=== PATIENT | female | born 1960 | race Hispanic/Latino ===

== ENCOUNTER 2020-06-24 09:56 | Observation (INO) | payer OTHER ==
[~2020-06-24] VITALS: Ht 157.5 cm; Wt 92.1 kg
[2020-06-24] MEDS ORDERED: DILTIAZEM HCL 5 MG/ML 5 ML VIAL IV ONE ×2 (10:15→10:45)
[2020-06-24] MEDS ORDERED: SODIUM CHLORIDE 0.9% 1000ML 1,000 ML ONE ×3 (10:32→13:04)
[2020-06-24] MEDS ORDERED: ENOXAPARIN SODIUM INJ 100 MG/ML SYR SC STA (10:35)
[2020-06-24] MEDS ORDERED: SODIUM CHLORIDE 0.9% 1000ML 1,000 ML IV STA ×3 (10:41→12:28)
[2020-06-24] MEDS ORDERED: ASPIRIN 81 MG CHEW TAB PO ONE (10:45)
[2020-06-24] MEDS: SODIUM CHLORIDE FLUSH 10 ML SYR INJ PRN (11:00)
[2020-06-24] MEDS ORDERED: IOPAMIDOL 370 MG/ML 200 ML INFUS..BTL INJ ONE (11:16)
[2020-06-24] MEDS ORDERED: SODIUM CHLORIDE 0.9% 50ML 50 ML ONE (11:16)
[2020-06-24] MEDS ORDERED: METOPROLOL TARTRATE INJ 1 MG/ML VIAL IV ONE ×2 (12:00→12:45)
[2020-06-24] MEDS ORDERED: METOPROLOL TARTRATE INJ 1 MG/ML VIAL ONE ×2 (12:10→13:04)
[2020-06-24] MEDS ORDERED: FAMOTIDINE 20 MG TAB ONE (13:04)
[2020-06-24] MEDS: FAMOTIDINE 20 MG TAB PO SCH ×2 (13:05→23:50)
[2020-06-24] MEDS ORDERED: CEFTRIAXONE SOD 1 GM/NS 50 ML 50 ML IV ONE ×2 (13:15→14:02)
[2020-06-24] MEDS ORDERED: AZITHROMYCIN 500MG/NS 250 ML 250 ML IV ONE ×2 (14:00→19:45)
[2020-06-24 15:05] VITALS: BP 129/84
[2020-06-24 20:00] VITALS: BP 104/76
[2020-06-24] MEDS ORDERED: SODIUM CHLORIDE 0.9% 250ML 250 ML ONE (20:33)
[2020-06-24] MEDS: METOPROLOL SUCCINATE 25 MG TAB XL PO SCH (20:55)
[2020-06-24] MEDS: ONDANSETRON HCL INJ 2MG/ML 2ML 2 MG/ML VIAL IV PRN (21:52)
[2020-06-25 01:27] LABS: CHOL/HDL RATIO 6.1 (3.0-3.6)
[2020-06-25] MEDS: METOPROLOL SUCCINATE 25 MG TAB XL PO SCH ×5 (01:35→20:28)
[2020-06-25 02:00] VITALS: BP 115/82
[2020-06-25 03:30] VITALS: BP 111/70
[2020-06-25 08:00] VITALS: BP 108/70
[2020-06-25] MEDS ORDERED: CEFTRIAXONE SOD 1 GM/NS 50 ML 50 ML IV SCH (08:15)
[2020-06-25] MEDS ORDERED: GUAIFENESIN/DEXTROMETHORPHAN LIQD 5 ML UDC NG PRN (08:15)
[2020-06-25] MEDS ORDERED: ACETAMINOPHEN 325 MG TAB PO PRN (08:15)
[2020-06-25] MEDS ORDERED: DOCUSATE SODIUM 100 MG CAP PO PRN (08:15)
[2020-06-25] MEDS ORDERED: ZOLPIDEM TARTRATE 5 MG TAB PO PRN (08:15)
[2020-06-25] MEDS ORDERED: ASCORBIC ACID500 MG PO (08:58)
[2020-06-25] MEDS ORDERED: TOPROL XL25 MG PO (08:58)
[2020-06-25] MEDS ORDERED: KEFLEX500 MG PO (08:58)
[2020-06-25] MEDS ORDERED: FENOFIBRATE145 MG PO (08:58)
[2020-06-25] MEDS ORDERED: TESSALON PERLE100 MG PO (08:58)
[2020-06-25] MEDS ORDERED: ELIQUIS5 MG PEG (08:58)
[2020-06-25] MEDS ORDERED: ZITHROMAX500 MG PO (08:58)
[2020-06-25] MEDS ORDERED: FAMOTIDINE20 MG PO (08:58)
[2020-06-25] MEDS ORDERED: DEXAMETHASONE SOD PHOS 10 MG/1 ML VIAL IV SCH (09:00)
[2020-06-25 09:11] LABS: BASOPHILS % 0.3 % (0.0-1.0); EOSINOPHILS # (AUTO) 0.1 (0.0-0.4); EOSINOPHILS % 1.7 % (0.0-6.0); HEMATOCRIT 39.6 % (34.2-44.1); HEMOGLOBIN 13.2 g/dL (12.0-16.0); LYMPHOCYTES # (AUTO) 1.8 (1.0-3.2); LYMPHOCYTES % 30.8 % (18.0-39.1); MEAN CORPUSCULAR HEMOGLOBIN 31.4 pg (28-32); MEAN CORPUSCULAR HGB CONC 33.3 g/dL (31-35); MEAN CORPUSCULAR VOLUME 94.3 fL (81-99); MONOCYTES # (AUTO) 0.4 (0.2-0.8); MONOCYTES % 6.7 % (4.4-11.3); NEUTROPHILS # (AUTO) 3.5 (2.1-6.9); NEUTROPHILS % 60.2 % (38.7-80.0); PLATELET COUNT 246 x10e3/uL (140-360); RED CELL DISTRIBUTION WIDTH 12.2 % (11.7-14.4)
[2020-06-25 09:34] LABS: ANION GAP 14.9 mmol/L (8-16); BLOOD UREA NITROGEN 12 mg/dL (7-26); BUN/CREATININE RATIO 18 (6-25); CALCIUM 8.6 mg/dL (8.4-10.2); CARBON DIOXIDE 22 mmol/L (22-29); CHLORIDE 105 mmol/L (98-107); CREATININE, SERUM 0.67 mg/dL (0.57-1.11); EST GLOMERULAR FILTRATION RATE > 60 ML/MIN (60-); GLUCOSE 212 mg/dL (74-118); POTASSIUM 3.9 mmol/L (3.5-5.1); SODIUM 138 mmol/L (136-145)
[2020-06-25 09:50] LABS: CHOL/HDL RATIO 4.6 (3.0-3.6)
[2020-06-25] MEDS: ZINC SULFATE 220 MG CAP PO SCH (10:00)
[2020-06-25] MEDS: BENZONATATE 100 MG CAP PO SCH ×3 (10:00→20:27)
[2020-06-25] MEDS: ASCORBIC ACID 500 MG TAB PO SCH ×2 (10:00→17:37)
[2020-06-25] MEDS: AZITHROMYCIN 500MG/NS 250 ML 250 ML IV SCH (10:00)
[2020-06-25 10:32] LABS: CREATINE KINASE MB 1.5 ng/mL (0-5.0)
[2020-06-25 12:00] VITALS: BP 102/70
[2020-06-25] MEDS: VANCOMYCIN 250MG/5ML ORAL SOLN PO SCH ×2 (12:30→18:06)
[2020-06-25] MEDS: FAMOTIDINE 20 MG TAB PO SCH (13:30)
[2020-06-25 16:00] VITALS: BP 105/83
[2020-06-25] MEDS ORDERED: DEXTROSE 50% SYRINGE 50 ML IV PRN (16:15)
[2020-06-25] MEDS: INSULIN REGULAR, HUMAN 100 UNIT/1 ML 3ML VIAL SQ SCH ×2 (16:30→20:28)
[2020-06-25] MEDS: CHOLESTYRAMINE 4 GM PACKET PO SCH (17:37)
[2020-06-25 20:00] VITALS: BP 117/76
[2020-06-26] VITALS: BP 123/78
[2020-06-26] MEDS: VANCOMYCIN 250MG/5ML ORAL SOLN PO SCH ×3 (00:33→12:00)
[2020-06-26] MEDS: FAMOTIDINE 20 MG TAB PO SCH (00:34)
[2020-06-26 04:00] VITALS: BP 129/89
[2020-06-26] MEDS: INSULIN REGULAR, HUMAN 100 UNIT/1 ML 3ML VIAL SQ SCH ×2 (07:30→12:58)
[2020-06-26 08:00] VITALS: BP 132/93
[2020-06-26 08:20] VITALS: BP 132/93
[2020-06-26] MEDS ORDERED: METOPROLOL SUCCINATE 50 MG TAB XL PO SCH ×2 (09:00→21:00)
[2020-06-26] MEDS: BENZONATATE 100 MG CAP PO SCH (09:38)
[2020-06-26] MEDS: AZITHROMYCIN 500MG/NS 250 ML 250 ML IV SCH (09:38)
[2020-06-26] MEDS: CHOLESTYRAMINE 4 GM PACKET PO SCH (09:38)
[2020-06-26] MEDS: SODIUM CHLORIDE FLUSH 10 ML SYR INJ PRN (09:39)
[2020-06-26] MEDS: ASCORBIC ACID 500 MG TAB PO SCH (09:39)
[2020-06-26] MEDS: ONDANSETRON HCL INJ 2MG/ML 2ML 2 MG/ML VIAL IV PRN (09:39)
[2020-06-26] MEDS: ZINC SULFATE 220 MG CAP PO SCH (09:39)
[2020-06-26 12:00] VITALS: BP 117/76
[2020-06-26] MEDS ORDERED: AMIODARONE HCL 200 MG TAB PO SCH (12:00)
[2020-06-26] MEDS ORDERED: METOPROLOL TARTRATE 50 MG TAB PO ONE (13:00)
[2020-06-26] MEDS ORDERED: DIGOXIN INJ 0.25 MG/ML 2 ML AMP IV ONE (13:40)
[2020-06-26] MEDS ORDERED: QUESTRAN PACKET4 GM PO (15:13)
[2020-06-26] MEDS ORDERED: AMIODARONE HCL200 MG PO (15:13)
[2020-06-26] MEDS ORDERED: VANCOMYCIN HCL1 GM PO (15:14)
[2020-06-26 16:00] VITALS: BP 125/68
== END 2020-06-26 16:00 | disposition home or self-care (01) ==
LOC: FSED 09:59 → ERHOLD 12:41 → INTOOBSV 12:41 → MED/SURG3 14:38
PROVIDERS: ADMIT Internal Medicine; ATTEND Internal Medicine
DX: U07.1 COVID-19 (principal); J12.89 Other viral pneumonia; I48.91 Unspecified atrial fibrillation; E86.0 Dehydration; R73.9 Hyperglycemia, unspecified; J96.00 Acute respiratory failure, unspecified whether with hypoxia or hypercapnia; E66.9 Obesity, unspecified; Z68.37 Body mass index [BMI] 37.0-37.9, adult; N39.0 Urinary tract infection, site not specified; R19.7 Diarrhea, unspecified
CPT/HCPCS: 36415 ×2; 71045; 71260; 80048 ×2; 80053; 80061; 82550 ×2; 82553 ×2; 82948 ×3; 83036; 83735; 84443; 84484 ×2; 85025 ×2; 85379; 93005; 93306; 96374; 96375; 96376; 97116; 97161; 97530; 99284; G0378 ×3; J0456 ×3; J0696 ×2; J1160; J1650; J1817; J2405 ×3; J7030; J7050; Q9967; J7799

== ENCOUNTER 2023-10-13 05:40 | Observation (INO) | payer OTHER ==
[~2023-10-13] VITALS: Ht 157.5 cm; Wt 92.1 kg
[~2023-10-13 05:40] MED LIST: AMIODARONE HCL200 MG PO; ASCORBIC ACID500 MG PO; ELIQUIS5 MG PEG; FAMOTIDINE20 MG PO; FENOFIBRATE145 MG PO; KEFLEX500 MG PO; QUESTRAN PACKET4 GM PO; TESSALON PERLE100 MG PO; TOPROL XL25 MG PO; VANCOMYCIN HCL1 GM PO; ZITHROMAX500 MG PO
[2023-10-13] MEDS: DILTIAZEM HCL 5 MG/ML 5 ML VIAL IV ONE (05:58)
[2023-10-13 06:08] LABS: BASOPHILS % 0.3 % (0.0-1.0); EOSINOPHILS # (AUTO) 0.1 (0.0-0.4); EOSINOPHILS % 1.9 % (0.0-6.0); HEMATOCRIT 39.8 % (34.2-44.1); LYMPHOCYTES # (AUTO) 2.9 (1.0-3.2); LYMPHOCYTES % 42.1 % (18.0-39.1); MEAN CORPUSCULAR HEMOGLOBIN 30.6 pg (28-32); MEAN CORPUSCULAR HGB CONC 32.7 g/dL (31-35); MEAN CORPUSCULAR VOLUME 93.6 fL (81-99); MONOCYTES # (AUTO) 0.5 (0.2-0.8); MONOCYTES % 7.4 % (4.4-11.3); NEUTROPHILS # (AUTO) 3.3 (2.1-6.9); NEUTROPHILS % 48.2 % (38.7-80.0); PLATELET COUNT 161 x10e3/uL (140-360); RED BLOOD COUNT 4.25 x10e6/uL (3.6-5.1); RED CELL DISTRIBUTION WIDTH 12.7 % (11.7-14.4); WHITE BLOOD COUNT 6.77 x10e3/uL (4.8-10.8)
[2023-10-13 06:16] LABS: INR 1.08; PARTIAL THROMBOPLASTIN TIME 30.6 seconds (23.8-35.5); PROTHROMBIN TIME 14.8 seconds (11.9-14.5)
[2023-10-13 06:27] LABS: ALBUMIN 4.1 g/dL (3.5-5.0); ANION GAP 16.3 mmol/L (8-16); BILIRUBIN,TOTAL 0.4 mg/dL (0.2-1.2); CALCIUM 9.6 mg/dL (8.4-10.2); CREATININE, SERUM 0.92 mg/dL (0.57-1.11); POTASSIUM 4.3 mmol/L (3.5-5.1); TOTAL PROTEIN 8.2 g/dL (6.5-8.1)
[2023-10-13] MEDS: METOPROLOL TARTRATE 25 MG TAB PO ONE (06:38)
[2023-10-13] MEDS: SODIUM CHLORIDE 0.9% 1000ML 1,000 ML IV STA (06:39)
[2023-10-13] MEDS ORDERED: ONDANSETRON HCL INJ 2MG/ML 2ML 2 MG/ML VIAL IV PRN (07:30)
[2023-10-13] MEDS: DILTIAZEM HCL 5 MG/ML 5 ML VIAL IV STA (08:36)
[2023-10-13 08:42] VITALS: BP 110/60; PULSE 99; RESP 17; TEMP 97.6; O2SAT 100
[2023-10-13] MEDS: FAMOTIDINE 20 MG/2 ML VIAL IV SCH (10:16)
[2023-10-13] MEDS: METOPROLOL TARTRATE 25 MG TAB PO SCH (10:17)
[2023-10-13] MEDS ORDERED: HYDROCHLOROTH12.5 MG PO (10:43)
[2023-10-13] MEDS ORDERED: METOPROLOL SUCC50 MG PO (10:43)
[2023-10-13] MEDS ORDERED: METFORMIN HCL500 MG PO (10:43)
[2023-10-13] MEDS ORDERED: MOUNJARO5 MG/0.5 M SQ (10:43)
[2023-10-13] MEDS ORDERED: CRESTOR10 MG PO (10:43)
[2023-10-13 11:00] VITALS: BP 110/60; PULSE 99; RESP 17; TEMP 97.6; O2SAT 100
[2023-10-13] MEDS ORDERED: DEXTROSE 50% SYRINGE 50 ML IV PRN ×2 (11:00→11:30)
[2023-10-13] MEDS: APIXABAN 5 MG TABLET PEG SCH (11:17)
[2023-10-13] MEDS: ACETAMINOPHEN 325 MG TAB PO PRN (11:18)
[2023-10-13] MEDS ORDERED: HYDROCHLOROTHIAZIDE 25 MG TAB PO SCH (11:30)
[2023-10-13] MEDS ORDERED: ACETAMINOPHEN 325 MG TAB PO PRN (11:30)
[2023-10-13] MEDS ORDERED: INSULIN REGULAR, HUMAN 100 UNIT/1 ML SQ SCH (11:30)
[2023-10-13 12:24] VITALS: BP 117/74; PULSE 102; RESP 18; TEMP 97.8; O2SAT 100
[2023-10-13] MEDS: INSULIN REGULAR, HUMAN 100 UNIT/1 ML SQ SCH (13:27)
[2023-10-13 13:36] LABS: CREATINE KINASE 67 IU/L (29-168)
[2023-10-13 13:47] LABS: TROPONIN I < 0.001 ng/mL (0-0.300)
[2023-10-13] MEDS: AMIODARONE HCL 200 MG TAB PO SCH (14:45)
[2023-10-13 16:00] VITALS: BP 102/61; PULSE 95; RESP 18; TEMP 97.8; O2SAT 100
[2023-10-13 19:30] VITALS: BP 103/68; PULSE 90; RESP 18; TEMP 97.9; O2SAT 97
[2023-10-13 20:00] VITALS: BP 103/68; PULSE 90; RESP 18; TEMP 97.9; O2SAT 97
[2023-10-13] MEDS ORDERED: SIMVASTATIN 20 MG TAB PO SCH (21:00)
[2023-10-13] MEDS: CRESTOR 10MG PO SCH (22:06)
[2023-10-13] MEDS: APIXABAN 5 MG TABLET PO SCH (22:06)
[2023-10-13 23:42] LABS: CREATINE KINASE 56 IU/L (29-168)
[2023-10-13 23:47] LABS: TROPONIN I < 0.001 ng/mL (0-0.300)
[2023-10-14] VITALS: BP 117/66; PULSE 78; RESP 18; TEMP 97.9; O2SAT 100
[2023-10-14 04:00] VITALS: BP 100/60; PULSE 74; RESP 18; TEMP 97.8; O2SAT 100
[2023-10-14 08:11] LABS: BASOPHILS % 0.4 % (0.0-1.0); EOSINOPHILS # (AUTO) 0.1 (0.0-0.4); EOSINOPHILS % 1.4 % (0.0-6.0); HEMATOCRIT 37.5 % (34.2-44.1); HEMOGLOBIN 12.3 g/dL (12.0-16.0); LYMPHOCYTES % 36.1 % (18.0-39.1); MEAN CORPUSCULAR HEMOGLOBIN 30.7 pg (28-32); MEAN CORPUSCULAR HGB CONC 32.8 g/dL (31-35); MEAN CORPUSCULAR VOLUME 93.5 fL (81-99); MONOCYTES # (AUTO) 0.4 (0.2-0.8); MONOCYTES % 7.7 % (4.4-11.3); PLATELET COUNT 144 x10e3/uL (140-360); RED BLOOD COUNT 4.01 x10e6/uL (3.6-5.1)
[2023-10-14 08:14] VITALS: BP 107/72; PULSE 69; RESP 18; TEMP 97.9; O2SAT 100
[2023-10-14 08:34] LABS: ALBUMIN 3.4 g/dL (3.5-5.0); ANION GAP 15.6 mmol/L (8-16); BILIRUBIN,TOTAL 0.4 mg/dL (0.2-1.2); CALCIUM 8.8 mg/dL (8.4-10.2); CHOL/HDL RATIO 3.4 (3.0-3.6); CREATININE, SERUM 0.67 mg/dL (0.57-1.11); POTASSIUM 3.6 mmol/L (3.5-5.1); TOTAL PROTEIN 6.9 g/dL (6.5-8.1)
[2023-10-14 08:37] VITALS: BP 107/72; PULSE 69; RESP 18; TEMP 97.9; O2SAT 100
[2023-10-14 12:44] VITALS: BP 112/85; PULSE 113; RESP 17; TEMP 97.6; O2SAT 100
[2023-10-14] MEDS: HYDROCHLOROTHIAZIDE 25 MG TAB PO SCH (12:48)
[2023-10-14] MEDS ORDERED: AMIODARONE HCL200 MG PO (14:38)
== END 2023-10-14 15:14 | disposition home or self-care (01) ==
LOC: ER 05:45 → ERHOLD 07:30 → MED/SURG3 08:25
PROVIDERS: ADMIT Internal Medicine; ATTEND Internal Medicine
DX: I48.0 Paroxysmal atrial fibrillation (principal); R07.89 Other chest pain; Z79.01 Long term (current) use of anticoagulants; I49.5 Sick sinus syndrome; I10 Essential (primary) hypertension; E11.9 Type 2 diabetes mellitus without complications; Z79.85 Long-term (current) use of injectable non-insulin antidiabetic drugs; Z79.84 Long term (current) use of oral hypoglycemic drugs; R42 Dizziness and giddiness; E78.00 Pure hypercholesterolemia, unspecified; E66.9 Obesity, unspecified; Z68.37 Body mass index [BMI] 37.0-37.9, adult; M06.9 Rheumatoid arthritis, unspecified; M19.91 Primary osteoarthritis, unspecified site; M85.80 Other specified disorders of bone density and structure, unspecified site; F32.A Depression, unspecified; F41.9 Anxiety disorder, unspecified; Z11.52 Encounter for screening for COVID-19; Z86.16 Personal history of COVID-19; Z85.3 Personal history of malignant neoplasm of breast; Z90.13 Acquired absence of bilateral breasts and nipples; Z88.5 Allergy status to narcotic agent; Z79.899 Other long term (current) drug therapy
CPT/HCPCS: 36415 ×2; 71045; 80053 ×2; 80061; 82550; 82948 ×2; 83880; 84443; 84484; 85025 ×2; 85610; 85730; 93005; 96372; 99284; G0378 ×2; U0002

== ENCOUNTER 2025-03-10 20:18 | Inpatient (IN) | payer MEDICARE ==
[~2025-03-10] VITALS: Ht 157.5 cm; Wt 92.1 kg
[~2025-03-10 20:18] MED LIST changes: +CRESTOR10 MG PO; +HYDROCHLOROTH12.5 MG PO; +METFORMIN HCL500 MG PO; +METOPROLOL SUCC50 MG PO; +MOUNJARO5 MG/0.5 M SQ
[2025-03-10 20:29] VITALS: TEMP 98.6
[2025-03-10 21:24] LABS: BASOPHILS % 0.2 % (0.0-1.0); EOSINOPHILS % 0.0 % (0.0-6.0); LYMPHOCYTES % 15.2 % (18.0-39.1); MONOCYTES % 10.1 % (4.4-11.3); NEUTROPHILS % 74.0 % (38.7-80.0); RED CELL DISTRIBUTION WIDTH 13.8 % (11.7-14.4)
[2025-03-10 21:40] LABS: EST GLOMERULAR FILTRATION RATE 93.0 ML/MIN (>=60)
[2025-03-10 22:06] LABS: CORONAVIRUS COVID-19 AG NEGATIVE (NEGATIVE)
[2025-03-10 23:45] VITALS: PULSE 67; RESP 22
[2025-03-11] VITALS (8 sets, daily range): BP systolic 109–120; BP diastolic 52–61; PULSE 66–83; RESP 17–18; TEMP 98.1–102.9; O2SAT 97–100
[2025-03-11] MEDS: ACETAMINOPHEN 325 MG TAB PO PRN (04:42)
[2025-03-11 06:59] LABS: BASOPHILS % 0.2 % (0.0-1.0); EOSINOPHILS % 0.0 % (0.0-6.0); LYMPHOCYTES % 20.7 % (18.0-39.1); MONOCYTES % 11.5 % (4.4-11.3); NEUTROPHILS % 67.0 % (38.7-80.0); RED CELL DISTRIBUTION WIDTH 13.7 % (11.7-14.4)
[2025-03-11 07:30] LABS: EST GLOMERULAR FILTRATION RATE 97.0 ML/MIN (>=60)
[2025-03-11 08:18] LABS: OSMOLALITY,SERUM 258 mOsm/kg (278-305)
[2025-03-11] MEDS: SODIUM CHLORIDE 0.9% 1000ML 1,000 ML IV SCH (09:54)
[2025-03-11 15:44] LABS: EST GLOMERULAR FILTRATION RATE 83.0 ML/MIN (>=60)
[2025-03-11] MEDS: APIXABAN 5 MG TABLET PEG SCH (17:17)
[2025-03-11] MEDS ORDERED: DEXTROSE 50% SYRINGE 50 ML IV PRN (17:30)
[2025-03-11] MEDS: INSULIN LISPRO 100 UNIT/1 ML 3ML VIAL SQ SCH (21:00)
[2025-03-11] MEDS ORDERED: SIMVASTATIN 40 MG TAB PO SCH (21:00)
[2025-03-11] MEDS: CRESTOR 10MG PO SCH (21:31)
[2025-03-12] VITALS (7 sets, daily range): BP systolic 97–117; BP diastolic 52–79; PULSE 67–83; RESP 18–20; TEMP 98.7–100.8; O2SAT 99–100
[2025-03-12] MEDS: CEFTRIAXONE 2 GM in SODIUM CHLORIDE 0.9% 100 ML IV SCH (00:30)
[2025-03-12 02:49] LABS: LEUKOCYTE ESTERASE ,URINE TRACE (NEGATIVE); PROTEIN,URINE DIPSTICK NEGATIVE (NEGATIVE); URINE UROBILINOGEN 0.2 mg/dL (0.2 - 1)
[2025-03-12 02:57] LABS: WBC,URINE (MAN) 21-50 /HPF (0-5)
[2025-03-12 02:58] LABS: EPITHELIAL CELLS,URINE MODERATE /LPF
[2025-03-12 05:53] LABS: BASOPHILS % 0.3 % (0.0-1.0); EOSINOPHILS % 0.0 % (0.0-6.0); LYMPHOCYTES % 17.0 % (18.0-39.1); MONOCYTES % 10.5 % (4.4-11.3); NEUTROPHILS % 71.9 % (38.7-80.0); RED CELL DISTRIBUTION WIDTH 14.1 % (11.7-14.4)
[2025-03-12 06:21] LABS: CHOL/HDL RATIO 5.2 (3.0-3.6); EST GLOMERULAR FILTRATION RATE 99.0 ML/MIN (>=60); LDL CHOLESTEROL 39.0 MG/DL (60-130)
[2025-03-12] MEDS: METOPROLOL SUCCINATE 50 MG TAB XL PO SCH (08:34)
[2025-03-12 14:01] LABS: EST GLOMERULAR FILTRATION RATE 99.0 ML/MIN (>=60)
[2025-03-12] MEDS: POTASSIUM CHLORIDE 20 MEQ TAB CR PO STA (18:18)
[2025-03-13] VITALS (7 sets, daily range): BP systolic 102–125; BP diastolic 61–83; PULSE 67–76; RESP 18–20; TEMP 99–100.3; O2SAT 99–100
[2025-03-13 07:00] LABS: EST GLOMERULAR FILTRATION RATE 98.0 ML/MIN (>=60)
[2025-03-13] MEDS: ACETAMINOPHEN 325 MG TAB ONE (07:34)
[2025-03-13 07:59] LABS: PHOSPHORUS 2.3 MG/DL (2.3-4.7)
[2025-03-13] MEDS: SODIUM CHLORIDE 1 GM TAB PO ONE (15:38)
[2025-03-13] MEDS ORDERED: AIRSUPRA 90-810.7 GM (23:03)
[2025-03-14] VITALS (7 sets, daily range): BP systolic 99–129; BP diastolic 53–66; PULSE 64–74; RESP 17–21; TEMP 97.6–99.3; O2SAT 97–100
[2025-03-15] VITALS (7 sets, daily range): BP systolic 112–127; BP diastolic 58–70; PULSE 60–73; RESP 18–20; TEMP 97.4–98.7; O2SAT 97–100
[2025-03-15] MEDS: SODIUM CHLORIDE 0.9% 1000ML 1,000 ML IV SCH (18:40)
[2025-03-15 19:26] LABS: HEPATITIS B CORE AB TOTAL NEGATIVE; HEPATITIS B SURFACE AG (P) NEGATIVE
[2025-03-15 19:27] LABS: HEPATITIS A ANTIBODY IGM (P) NEGATIVE; HEPATITIS B CORE IGM (P) NEGATIVE
[2025-03-16 07:27] LABS: BASOPHILS % 0.3 % (0.0-1.0); EOSINOPHILS % 1.9 % (0.0-6.0); LYMPHOCYTES % 26.3 % (18.0-39.1); MONOCYTES % 8.5 % (4.4-11.3); NEUTROPHILS % 62.5 % (38.7-80.0); RED CELL DISTRIBUTION WIDTH 14.5 % (11.7-14.4)
[2025-03-16 07:58] VITALS: BP 128/69; PULSE 67; RESP 18; TEMP 97.4; O2SAT 100
[2025-03-16 08:00] VITALS: BP 128/69; PULSE 67; RESP 18; TEMP 97.4; O2SAT 100
[2025-03-16 08:09] LABS: EST GLOMERULAR FILTRATION RATE 101.0 ML/MIN (>=60)
[2025-03-16 11:45] VITALS: BP 123/72; PULSE 67; RESP 18; TEMP 97.5; O2SAT 100
== END 2025-03-16 14:10 | disposition home or self-care (01) | DRG 872 ==
LOC: ER 20:26 → ERHOLD 22:07 → MED/SURG2 23:54
PROVIDERS: ADMIT Internal Medicine; ATTEND Internal Medicine
DX: A41.9 Sepsis, unspecified organism (principal); E87.1 Hypo-osmolality and hyponatremia; N39.0 Urinary tract infection, site not specified; E11.9 Type 2 diabetes mellitus without complications; E86.1 Hypovolemia; I48.91 Unspecified atrial fibrillation; R53.81 Other malaise; T46.5X5A Adverse effect of other antihypertensive drugs, initial encounter; I10 Essential (primary) hypertension; E78.5 Hyperlipidemia, unspecified; J45.909 Unspecified asthma, uncomplicated; R42 Dizziness and giddiness; R79.89 Other specified abnormal findings of blood chemistry; E66.9 Obesity, unspecified; Z68.37 Body mass index [BMI] 37.0-37.9, adult; Z79.01 Long term (current) use of anticoagulants; Z79.85 Long-term (current) use of injectable non-insulin antidiabetic drugs; Z79.84 Long term (current) use of oral hypoglycemic drugs; Z11.52 Encounter for screening for COVID-19; Z85.3 Personal history of malignant neoplasm of breast; Z90.13 Acquired absence of bilateral breasts and nipples; Z90.710 Acquired absence of both cervix and uterus; Z88.5 Allergy status to narcotic agent
CPT/HCPCS: 36415; 71045; 80048; 80053; 80061; 81001; 82550; 82947; 82948; 83036; 83518; 83690; 83735; 83880; 83935; 84100; 84295; 84300; 84443; 84484; 84520; 84550; 85025; 86677; 86704; 86705; 87040; 87340; 93005; 99284; J0696; J7030; J7050